=== PATIENT | female | born 1990 | race American Indian/Alaskan Native ===

== ENCOUNTER 2018-06-11 16:48 | Emergency (ER) | payer SELFPAY ==
--- NOTE | 2018-06-11 18:54 | Emergency Department Report ---
ED Female HPI - General Chief complaint: Vaginal Bleeding Stated complaint: VAG BLEED Time Seen by Provider: 06/11/18 18:54 Source: patient, old records reviewed Mode of arrival: Stretcher Limitations: Altered Mental Status - History of Present Illness MD Complaint: vaginal bleeding -: Sudden Location: perineum Radiation: non-radiating Severity: mild Severity scale (0 -10): 2 Improves with: none Worsens with: none Are you Now?: Yes Associated Symptoms: denies other symptoms - Related Data Sexually active: Yes ED Review of Systems ROS: Stated complaint: VAG BLEED Other details as noted in HPI Comment: All other systems reviewed and negative Constitutional: denies: chills, fever Eyes: denies: eye pain ENT: denies: ear pain Respiratory: denies: cough, shortness of breath Cardiovascular: denies: chest pain, palpitations Endocrine: no symptoms reported Gastrointestinal: denies: abdominal pain, nausea, vomiting, diarrhea Genitourinary: denies: urgency, dysuria, frequency Musculoskeletal: denies: back pain Skin: denies: rash, lesions Neurological: denies: headache, weakness Psychiatric: denies: anxiety, depression Hematological/Lymphatic: denies: easy bleeding, easy bruising ED Past Medical Hx - Past Medical History Previous Medical History?: No - Social History Smoking Status: Current Every Day Smoker Substance Use Type: Alcohol, Other ED Physical Exam - General Limitations: Altered Mental Status General appearance: in no apparent distress, lethargic - Head Head exam: Present: atraumatic, normocephalic, normal inspection - Eye Eye exam: Present: normal appearance, PERRL, EOMI Pupils: Present: normal accommodation - ENT ENT exam: Present: normal exam, mucous membranes dry, mucous membranes moist - Neck Neck exam: Present: normal inspection, full ROM - Respiratory Respiratory exam: Present: normal lung sounds bilaterally. Absent: respiratory distress, wheezes, rales, rhonchi, stridor - Cardiovascular Cardiovascular Exam: Present: regular rate, normal rhythm, normal heart sounds - GI/Abdominal GI/Abdominal exam: Present: soft, normal bowel sounds. Absent: distended, tenderness, guarding, rebound, rigid - Rectal Rectal exam: Present: deferred - External exam: Present: normal external exam Speculum exam: Present: vaginal bleeding. 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 Pham RN.). Absent: cervical motion tendernes, adnexal tenderness, adnexal mass, uterine enlargement, uterine tenderness - Extremities Exam Extremities exam: Present: normal inspection, full ROM, normal capillary refill - Back Exam Back exam: Present: normal inspection, full ROM. Absent: tenderness - Neurological Exam Neurological exam: Present: alert, oriented X3, CN II-XII intact - Psychiatric Psychiatric exam: Present: normal affect, normal mood - Skin Skin exam: Present: warm, dry, intact, normal color. Absent: rash ED Course Vital Signs 06/11/18 06/11/18 18:01 18:08 Temperature 97.7 F Blood Pressure 101/56 ED Medical Decision Making - Lab Data Result diagrams: 06/11/18 20:14 06/11/18 20:14 - Radiology Data Radiology results: report reviewed, image reviewed - Medical Decision Making Vaginal Bleeding. Critical care attestation.: If time is entered above; I have spent that time in minutes in the direct care of this critically ill patient, excluding procedure time. ED Disposition Clinical Impression: Cocaine abuse, Marijuana abuse, Amphetamine abuse, Normal menstrual period Disposition: DC-01 TO HOME OR SELFCARE Is pt being admited?: No Does the pt Need Aspirin: No Condition: Stable Instructions: Cocaine Abuse (ED), Cannabis Abuse (ED) Additional Instructions: Follow up with your regular doctor as needed. Please stop using Cocaine and other illicit drugs. Return to the ED if your condition worsens. Referrals: PRIMARY CARE, [Primary Care Provider] - 3-5 Days Time of Disposition: 22:47
[2018-06-11] MEDS ORDERED: NACL 0.9% 1000 ML 1,000 ML IV ONE (19:02)
[2018-06-11 20:26] LABS: Basophils # (Auto) 0.1 K/mm3 (0.0-0.1); Basophils % (Auto) 0.8 % (0.0-1.8); Eosinophils # (Auto) 0.4 K/mm3 (0.0-0.4); Eosinophils % (Auto) 3.8 % (0.0-4.3); Hematocrit 41.1 % (30.3-42.9); Hemoglobin 13.7 gm/dl (10.1-14.3); Lymphocytes # (Auto) 3.2 K/mm3 (1.2-5.4); Lymphocytes % (Auto) 30.9 % (13.4-35.0); Mean Corpuscular HGB Conc 33 % (30-34); Mean Corpuscular Hemoglobin 30 pg (28-32); Mean Corpuscular Volume 89 fl (79-97); Monocytes # (Auto) 0.5 K/mm3 (0.0-0.8); Monocytes % (Auto) 5.3 % (0.0-7.3); Platelet Count 258 K/mm3 (140-440); Red Blood Count 4.63 M/mm3 (3.65-5.03); Red Cell Distribution Width 16.3 % (13.2-15.2)
[2018-06-11 20:48] LABS: INR 0.98 (0.87-1.13)
[2018-06-11 21:22] LABS: Bilirubin,Urine NEG (Negative); Blood,Urine NEG (Negative); Color,Urine Yellow (Yellow); Mucus,Urine 2+ /HPF; Protein,Urine <15 mg/dL mg/dL (Negative); Urobilinogen,Urine < 2.0 mg/dL (<2.0)
[2018-06-11 21:25] LABS: HCG Qualitative,Urine Negative (Negative)
[2018-06-11 21:41] LABS: Benzodiazepines Screen,Urine PRESUMPTIVE NEGATIVE; Methadone Screen,Urine PRESUMPTIVE NEGATIVE; Opiate Screen,Urine PRESUMPTIVE NEGATIVE
[2018-06-11 21:55] LABS: Amphetamine Screen,Urine PRESUMPTIVE POSITIVE; Cannabinoid Screen,Urine PRESUMPTIVE POSITIVE; Cocaine Screen,Urine PRESUMPTIVE POSITIVE
[2018-06-11 22:17] LABS: Alanine Aminotransferase 9 units/L (7-56); Albumin 3.9 g/dL (3.9-5); BUN/Creatinine Ratio 10; Blood Urea Nitrogen 7 mg/dL (7-17); Hemolysis Index 16
--- NOTE | 2018-06-11 22:30 | Ultrasound Report ---
FINAL REPORT PROCEDURE: US OB < = 14 WEEKS FETUS TECHNIQUE: Real-time transabdominal sonography of the uterus, placenta, amniotic fluid, adnexa, and fetus was performed with image documentation. Measurements were obtained to determine age/size. M-mode Doppler was used to document heartbeat. CPT 95569 HISTORY: Vaginal bleeding COMPARISON: Transvaginal pelvic ultrasound also performed today. FINDINGS: The report for this exam was generating utilizing images from both the transabdominal and transvaginal OB ultrasound both of which were performed today. Uterus is anteverted measuring 7.5 x 3.4 x 4.0 centimeter. No evidence of intrauterine . A gestational sac is not visualized. The endometrial stripe appear normal measuring 6.4 millimeters. Minimal fluid seen in the cul-de-sac. Right and left ovaries are visualized and appear normal. No abnormal adnexal masses are seen. Follicles are visualized in both ovaries. The right ovary measures 3.3 x 3.0 x 3.8 centimeter. The left ovary measures 3.4 x 2.1 x 3.3 centimeters. IMPRESSION: No evidence of intrauterine . Uterus is normal in appearance. Ovaries are unremarkable. Minimal free fluid is present in the cul-de-sac. Ectopic cannot be entirely excluded. Recommend following serial beta HCG units and follow-up pelvic ultrasound if clinically indicated.
--- NOTE | 2018-06-11 22:31 | Ultrasound Report ---
FINAL REPORT PROCEDURE: US OB TRANSVAGINAL TECHNIQUE: Real-time transvaginal sonography of the uterus, placenta, amniotic fluid, adnexa, and fetus was performed with image documentation. Measurements were obtained to determine age/size. M-mode Doppler was used to document heartbeat. CPT 81198 HISTORY: Vaginal bleeding COMPARISON: Transabdominal OB ultrasound also performed today. FINDINGS: The report for this exam was generating utilizing images from both the transabdominal and transvaginal OB ultrasound both of which were performed today. Uterus is anteverted measuring 7.5 x 3.4 x 4.0 centimeter. No evidence of intrauterine . A gestational sac is not visualized. The endometrial stripe appear normal measuring 6.4 millimeters. Minimal fluid seen in the cul-de-sac. Right and left ovaries are visualized and appear normal. No abnormal adnexal masses are seen. Follicles are visualized in both ovaries. The right ovary measures 3.3 x 3.0 x 3.8 centimeter. The left ovary measures 3.4 x 2.1 x 3.3 centimeters. IMPRESSION: No evidence of intrauterine . Uterus is normal in appearance. Ovaries are unremarkable. Minimal free fluid is present in the cul-de-sac. Ectopic cannot be entirely excluded. Recommend following serial beta HCG units and follow-up pelvic ultrasound if clinically indicated.
[2018-06-12 00:45] VITALS: BP 101/57
== END 2018-06-12 00:45 | disposition home or self-care (01) ==
LOC: ED 16:48
DX: F12.10 Cannabis abuse, uncomplicated (principal); F14.10 Cocaine abuse, uncomplicated; F15.10 Other stimulant abuse, uncomplicated; F17.200 Nicotine dependence, unspecified, uncomplicated
CPT/HCPCS: 36415; 76801; 76817; 80053; 80307; 81001; 81025; 82962; 84702; 85025; 85610; 85730; 86900; 86901; 87210; 87591; 96360; 99285; G0480; J7030; 80320